=== PATIENT | female | born 1990 | race African-American/Black ===

== ENCOUNTER 2023-07-28 11:27 | Emergency (ER) | payer MEDICAID ==
[~2023-07-28] VITALS: Ht 157.5 cm; Wt 78.9 kg
[2023-07-28 11:38] VITALS: O2SAT 100
[2023-07-28] MEDS ORDERED: IBUP-1957 PO (12:22)
== END 2023-07-28 12:30 | disposition home or self-care (01) ==
LOC: ER 11:27
DX: S93.511A Sprain of interphalangeal joint of right great toe, initial encounter (principal); Z79.899 Other long term (current) drug therapy; X58.XXXA Exposure to other specified factors, initial encounter; Y93.89 Activity, other specified; Y92.89 Other specified places as the place of occurrence of the external cause; Y99.8 Other external cause status
CPT/HCPCS: 73660; A4606; A4663